=== PATIENT | female | born 1930 | race Caucasian/White ===

== ENCOUNTER 2017-11-23 06:14 | Outpatient (CLI) | payer MEDICARE ==
[~2017-11-23] VITALS: Ht 162.6 cm; Wt 69.9 kg
[~2017-11-23 06:14] MED LIST: CALC-17 PO; HYDR-3583 PO; LISI1TAB10 PO; MULT-608 PO; OMG1KC PO; PRAV80TA2 PO
[2017-11-23] MEDS ORDERED: MAGN100T5 PO (13:40)
[2017-11-23] MEDS ORDERED: IRON18TA PO (13:40)
[2017-11-23] MEDS ORDERED: METO5TAB75 PO (13:40)
[2017-11-23] MEDS ORDERED: LOVA10TA PO (13:40)
[2017-11-23] MEDS ORDERED: CALC-308 PO (13:40)
[2017-11-23] MEDS ORDERED: PANT40TA2 PO (13:40)
[2017-11-23] MEDS ORDERED: HYDR25TA4 PO (13:40)
[2017-11-23] MEDS ORDERED: IRBE1TAB43 PO (13:40)
[2017-11-23] MEDS ORDERED: METF500T5 PO (13:40)
[2017-11-23] MEDS ORDERED: CYAN1TAB26 PO (13:40)
[2017-11-24] MEDS ORDERED: ACHD5005 PO (12:09)
[2017-11-24] MEDS ORDERED: DOCU-143 PO (12:09)
== END 2017-11-23 14:05 ==
LOC: PREOP 06:14
PROVIDERS: ATTEND Surgery
DX: Z01.818 Encounter for other preprocedural examination (principal); K80.20 Calculus of gallbladder without cholecystitis without obstruction

== ENCOUNTER 2017-11-24 08:08 | Day surgery (SDC) | payer MEDICARE, OTHER ==
[2017-11-24] VITALS (7 sets, daily range): BP systolic 120–175; BP diastolic 53–93
[~2017-11-24] VITALS: Ht 162.6 cm; Wt 69.9 kg
[~2017-11-24 08:08] MED LIST changes: +CALC-308 PO; +CYAN1TAB26 PO; +HYDR25TA4 PO; +IRBE1TAB43 PO; +IRON18TA PO; +LOVA10TA PO; +MAGN100T5 PO; +METF500T5 PO; +METO5TAB75 PO; +PANT40TA2 PO
--- OUTSIDE RECORDS SUMMARY | 2017-11-24 08:12 | XMS REPORT | Continuity of Care Document ---
Author Author [facility] Organization [facility] Address Unknown Phone Unavailable Allergies Active Description Code Type Severity Reaction Onset Reported/Identified Relationship to Patient Clinical Status Yes NORVASC MODERATE OTHER Yes amlodipine [id number] Drug Allergy Unknown SWELLING 11/23/2017 Medications Medication Packaging Start Date Stop Date Route Dosage Sig FUROSEMIDE VIAL INJ 20 MG (LASIX VIAL) MG 01/26/2017 01/26/2017 ONCE&2330 NORMAL SALINE 1000CC IV BAG INJ 0.9 % (NS 1000CC IV BAG) ml 02/03/2017 02/03/2017 ONCE&2155 HYDROCODONE/APAP 7.5/325 TAB (CHANDNI-TAB 7.5/325) TAB 02/04/2017 02/14/2017 PRN Q4H NORMAL SALINE 1000CC IV BAG INJ 0.9 % (NS 1000CC IV BAG) ml 02/04/2017 02/19/2017 CONTINUOUSEVERY 0 Hour MAGNESIUM OXIDE TAB 400 MG (MAG-OX) MG 02/04/2017 02/10/2017 BID&0800,1999 METFORMIN TAB 500 MG (GLUCOPHAGE) Dose(s) 02/04/2017 02/10/2017 BID&0800,2000 HYDRALAZINE TAB 25 MG (APRESOLINE) Dose(s) 02/04/2017 02/10/2017 BID&0800,1999 IRBESARTAN TAB 150 MG (AVAPRO) MG 02/04/2017 02/10/2017 Daily&0900 PANTOPAZOLE VIAL INJ 40 MG (PROTONIX IV) MG 02/04/2017 02/14/2017 BID&0800,2000 FUROSEMIDE VIAL INJ 20 MG (LASIX VIAL) MG 02/04/2017 02/04/2017 ONCE&1100 LACTATED RINGERS 1000CC IV BAG INJ ml 02/05/2017 02/05/2017 ONCE&0720 SUCRALFATE TAB 1 GM (CARAFATE) GM 02/05/2017 02/05/2017 ONCE&0920 SUCRALFATE TAB 1 GM (CARAFATE) GM 02/05/2017 02/12/2017 ACHS&0630,1130,1630,2100 HYDRALAZINE TAB 25 MG (APRESOLINE) Dose(s) 02/06/2017 02/06/2017 ONCE&0800 IRBESARTAN TAB 150 MG (AVAPRO) Dose(s) 02/06/2017 02/12/2017 Daily&0900 HYDROCORTISONE CREAM CRM 1 % (HYTONE CREAM) chen 02/06/2017 02/16/2017 PRN BID HYDRALAZINE TAB 25 MG (APRESOLINE) Dose(s) 02/06/2017 02/13/2017 TID&0800,1400,2000 CEFTRIAXONE PREMIX IV BAG IV 1 GM/50CC (ROCEPHIN PREMIX IV BAG) GM 02/06/2017 02/07/2017 BID&0800 LORATADINE TAB 10 MG (CLARITIN) MG 02/07/2017 02/13/2017 Daily&0900 HYDROCHLOROTHIAZIDE CAP 12.5 MG (HYDRODIURIL) MG 02/07/2017 02/13/2017 Daily&0900 IRBESARTAN TAB 150 MG (AVAPRO) Dose(s) 02/11/2017 02/17/2017 BID&0800,2000 FUROSEMIDE VIAL INJ 20 MG (LASIX VIAL) MG 02/11/2017 02/11/2017 ONCE&1816 NORMAL SALINE 1000CC IV BAG INJ 0.9 % (NS 1000CC IV BAG) ml 02/11/2017 02/26/2017 CONTINUOUSEVERY 0 Hour GOLYTELY LIQ (GOLYTELY) MLS 02/1102/11/2017 ONCE&1835 MAGNESIUM OXIDE TAB 400 MG (MAG-OX) Dose(s) 02/11/2017 02/18/2017 BID&0800,2000 METFORMIN TAB 500 MG (GLUCOPHAGE) MG 02/11/2017 02/18/2017 BID&0800,2000 PANTOPAZOLE VIAL INJ 40 MG (PROTONIX IV) MG 02/11/2017 02/21/2017 BID&0800,2000 GOLYTELY LIQ (GOLYTELY) MLS 02/1202/12/2017 ONCE&1200 CALMOSEPTINE OINT TUBE (RISAMINE OINT) chen 02/12/2017 02/19/2017 PRN QID CITRATE OF MAGNESIA LIQ bottle 06/201602/13/2017 ONCE&0700 MIDAZOLAM 2CC VIAL INJ 1 MG/CC (VERSED 2CC VIAL) MG 02/13/2017 02/13/2017 ONCE&1331 MIDAZOLAM 2CC VIAL INJ 1 MG/CC (VERSED 2CC VIAL) MG 02/13/2017 02/13/2017 ONCE&1346 ONDANSETRON VIAL INJ 4 MG/2CC (ZOFRAN 2CC VIAL) MG 02/13/2017 02/13/2017 PRN ONCE FENTANYL INJ 100 MCG/2CC VIAL MCG 02/13/2017 02/16/2017 Q2H&0200,0400,0600,0800,1000,1200,1400,1600,1800,2000,2200,2359 SUCRALFATE TAB 1 GM (CARAFATE) GM 02/14/2017 02/21/2017 QID&0800,1200,1700,2200 PANTOPRAZOLE TAB 40 MG (PROTONIX) MG 02/14/2017 02/21/2017 BID&0800,2000 HYDRALAZINE TAB 25 MG (APRESOLINE) Dose(s) 02/15/2017 02/21/2017 TID&0600,1400,2200 PANTOPRAZOLE TAB 40 MG (PROTONIX) Dose(s) 02/15/2017 03/16/2017 BID&0800,2000 SUCRALFATE TAB 1 GM (CARAFATE) Dose(s) 02/15/2017 03/17/2017 QID&0800,1200,1700,2200 LORATADINE TAB 10 MG (CLARITIN) Dose(s) 02/16/2017 03/17/2017 Daily&0900 NORMAL SALINE 500CC IV BAG INJ 0.9 % (NS 500CC IV BAG) ml 11/20/2017 11/20/2017 ONCE&1456 ONDANSETRON VIAL INJ 4 MG/2CC (ZOFRAN 2CC VIAL) MG 11/20/2017 11/20/2017 ONCE&1628 Problems Date Dx Coded Attending Type Code Diagnosis Diagnosed By 01/23/2017 Joshua Roberson 250.00 DIABETES MELLITUS WITHOUT MENTION OF COMPLICATION, TYPE II OR UNSPECIFIED TYPE, NOT STATED UNCONTROLLED 01/23/2017 Joshua Roberson 272.4 OTHER AND UNSPECIFIED HYPERLIPIDEMIA 01/23/2017 Joshua Roberson 285 01/23/2017 Joshua Roberson 401.9 UNSPECIFIED ESSENTIAL HYPERTENSION 01/23/2017 Joshua Roberson 785.1 01/23/2017 Joshua Roberson 786.05 01/23/2017 Joshua Roberson 787.7 01/23/2017 Joshua Roberson 791.7 OTHER CELLS AND CASTS IN URINE 01/23/2017 Joshua Roberson D64.9 ANEMIA, UNSPECIFIED 01/23/2017 Joshua Roberson E11.9 TYPE 2 DIABETES MELLITUS WITHOUT COMPLICATIONS 01/23/2017 Joshua Roberson E78.5 HYPERLIPIDEMIA, UNSPECIFIED 01/23/2017 Joshua Roberson I10 ESSENTIAL (PRIMARY) HYPERTENSION 01/23/2017 Joshua Roberson R00.2 PALPITATIONS 01/23/2017 Joshua Roberson R06.02 SHORTNESS OF BREATH 01/23/2017 Joshua Roberson R19.5 OTHER FECAL ABNORMALITIES 01/23/2017 Joshua Roberson R82.99 OTHER ABNORMAL FINDINGS IN URINE 01/26/2017 Sara Mac Z98.89 OTHER SPECIFIED POSTPROCEDURAL STATES 01/26/2017 Sara Mac 998.31 DISRUPTION OF INTERNAL OPERATION (SURGICAL) WOUND 01/26/2017 Sara Mac V26.51 TUBAL LIGATION STATUS 01/26/2017 Sara Mac Z98.51 TUBAL LIGATION STATUS 01/26/2017 Sara Mac Z98.89 OTHER SPECIFIED POSTPROCEDURAL STATES 01/26/2017 Sara Mac 285 OTHER AND UNSPECIFIED ANEMIAS 01/26/2017 Sara Mac 998.31 DISRUPTION OF INTERNAL OPERATION (SURGICAL) WOUND 01/26/2017 Sara Mac D64.9 ANEMIA, UNSPECIFIED 01/26/2017 Sara Mac W V26.51 TUBAL LIGATION STATUS 01/26/2017 Sara Mac W Z98.51 TUBAL LIGATION STATUS 01/26/2017 Sara Mac Z98.89 OTHER SPECIFIED POSTPROCEDURAL STATES 01/27/2017 Sara Mac 285 OTHER AND UNSPECIFIED ANEMIAS 01/27/2017 Sara Mac 998.31 DISRUPTION OF INTERNAL OPERATION (SURGICAL) WOUND 01/27/2017 Danilo, Sara A D64.9 ANEMIA, UNSPECIFIED 01/27/2017 Danilo, Sara W V26.51 TUBAL LIGATION STATUS 01/27/2017 Danilo, Sara W Z98.51 TUBAL LIGATION STATUS 01/27/2017 Danilo, Sara W Z98.89 OTHER SPECIFIED POSTPROCEDURAL STATES 01/30/2017 Danilo, Sara W 285 OTHER AND UNSPECIFIED ANEMIAS 01/30/2017 Danilo, Sara W D64.9 ANEMIA, UNSPECIFIED 01/30/2017 Danilo, Sara W 285 OTHER AND UNSPECIFIED ANEMIAS 01/30/2017 Danilo, Sara W D64.9 ANEMIA, UNSPECIFIED 02/07/2017 Danilo, Sara W 041.3 KLEBSIELLA PNEUMONIAE INFECTION IN CONDITIONS CLASSIFIED ELSEWHERE AND OF UNSPECIFIED SITE 02/07/2017 Danilo, Sara W 250.00 02/07/2017 Danilo, Sara W 272.4 02/07/2017 Danilo, Sara W 285.1 02/07/2017 Danilo, Sara W 401.0 02/07/2017 Danilo, Sara W 530.81 02/07/2017 Danilo, Sara A 531.0 02/07/2017 Danilo, Sara W 535.10 02/07/2017 Danilo, Sara W 599.0 URINARY TRACT INFECTION, SITE NOT SPECIFIED 02/07/2017 Danilo, Sara W 780.79 OTHER MALAISE AND FATIGUE 02/07/2017 [facility], Sara W 787.91 DIARRHEA 02/07/2017 Danilo, Sara W B96.1 KLEBSIELLA PNEUMONIAE THE CAUSE OF DISEASES CLASSD ELSWHR 02/07/2017 Danilo, Sara W D62 02/07/2017 Danilo, Sraa W E11.9 TYPE 2 DIABETES MELLITUS WITHOUT COMPLICATIONS 02/07/2017 Danilo, Sara W E78.5 HYPERLIPIDEMIA, UNSPECIFIED 02/07/2017 Danilo, Sara W I10 ESSENTIAL (PRIMARY) HYPERTENSION 02/07/2017 Danilo, Sara W K21.9 GASTRO-ESOPHAGEAL REFLUX DISEASE WITHOUT ESOPHAGITIS 02/07/2017 Danilo, Sara A K25.0 02/07/2017 Danilo, Sara W K29.30 CHRONIC SUPERFICIAL GASTRITIS WITHOUT BLEEDING 02/07/2017 Danilo, Sara W N39.0 URINARY TRACT INFECTION, SITE NOT SPECIFIED 02/07/2017 Danilo Sara W R19.7 DIARRHEA, UNSPECIFIED 02/07/2017 Glo Maca W R53.83 OTHER FATIGUE 02/15/2017 Sara Mac W 285.1 ACUTE POSTHEMORRHAGIC ANEMIA 02/15/2017 Glo Maca W 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 02/15/2017 Glo Maca A 531.0 02/15/2017 Danilo Sara W 552.3 02/15/2017 Danilo Sara W 562.12 DIVERTICULOSIS OF COLON WITH HEMORRHAGE 02/15/2017 Danilo, Sara W 578.9 HEMORRHAGE OF GASTROINTESTINAL TRACT, UNSPECIFIED 02/15/2017 Sara Mac W D62 ACUTE POSTHEMORRHAGIC ANEMIA 02/15/2017 Sara Mac W I10 ESSENTIAL (PRIMARY) HYPERTENSION 02/15/2017 Sara Mac A K25.0 ACUTE GASTRIC ULCER WITH HEMORRHAGE 02/15/2017 Sara Mac K44.9 DIAPHRAGMATIC HERNIA WITHOUT OBSTRUCTION OR GANGRENE 02/15/2017 Sara Mac W K57.30 DVRTCLOS OF LG INT W/O PERFORATION OR ABSCESS W/O BLEEDING 02/15/2017 Glo Maca W K92.2 GASTROINTESTINAL HEMORRHAGE, UNSPECIFIED 02/20/2017 Danilo Sara W 285 OTHER AND UNSPECIFIED ANEMIAS 02/20/2017 Glo Maca W D64.9 ANEMIA, UNSPECIFIED 02/20/2017 Danilo Sara W 285 OTHER AND UNSPECIFIED ANEMIAS 02/20/2017 Glo Maca W D64.9 ANEMIA, UNSPECIFIED 03/06/2017 Glo Maca W V67.59 OTHER FOLLOW-UP EXAMINATION 03/06/2017 Sara Mac Z09 ENCOUNTER FOR FOLLOW-UP EXAMINATION AFTER COMPLETED TREATMENT FOR CONDITIONS OTHER THAN MALIGNANT NEOPLASM 03/06/2017 Sara Mac V67.59 OTHER FOLLOW-UP EXAMINATION 03/06/2017 Sara Mac W Z09 ENCOUNTER FOR FOLLOW-UP EXAMINATION AFTER COMPLETED TREATMENT FOR CONDITIONS OTHER THAN MALIGNANT NEOPLASM 03/24/2017 Sara Mac W 531.0 ACUTE GASTRIC ULCER WITH HEMORRHAGE 03/24/2017 Danilo, Sara W K25.0 ACUTE GASTRIC ULCER WITH HEMORRHAGE 03/24/2017 Sara Mac W V67.59 OTHER FOLLOW-UP EXAMINATION 03/24/2017 Sara Mac W Z09 ENCOUNTER FOR FOLLOW-UP EXAMINATION AFTER COMPLETED TREATMENT FOR CONDITIONS OTHER THAN MALIGNANT NEOPLASM 03/24/2017 DaniloGloa W 531.0 ACUTE GASTRIC ULCER WITH HEMORRHAGE 03/24/2017 DaniloGloa W K25.0 ACUTE GASTRIC ULCER WITH HEMORRHAGE 03/24/2017 Danilo Sara W V67.59 OTHER FOLLOW-UP EXAMINATION 03/24/2017 DaniloGloa W Z09 ENCOUNTER FOR FOLLOW-UP EXAMINATION AFTER COMPLETED TREATMENT FOR CONDITIONS OTHER THAN MALIGNANT NEOPLASM 08/23/2017 Danilo, Sara W 250.00 DIABETES MELLITUS WITHOUT MENTION OF COMPLICATION, TYPE II OR UNSPECIFIED TYPE, NOT STATED UNCONTROLLED 08/23/2017 Sara Mac W 796.4 OTHER ABNORMAL CLINICAL FINDINGS 08/23/2017 Sara Mac W E11.9 TYPE 2 DIABETES MELLITUS WITHOUT COMPLICATIONS 08/23/2017 Sara Mac W 250.00 DIABETES MELLITUS WITHOUT MENTION OF COMPLICATION, TYPE II OR UNSPECIFIED TYPE, NOT STATED UNCONTROLLED 08/23/2017 Sara Mac W 796.4 OTHER ABNORMAL CLINICAL FINDINGS 08/23/2017 Glo Maca W E11.9 TYPE 2 DIABETES MELLITUS WITHOUT COMPLICATIONS 11/02/2017 Sara Mac W 719.45 PAIN IN JOINT INVOLVING PELVIC REGION AND THIGH 11/02/2017 Glo Maca W M25.559 PAIN IN UNSPECIFIED HIP 11/02/2017 Glo Maca W 719.45 PAIN IN JOINT INVOLVING PELVIC REGION AND THIGH 11/02/2017 Glo Maca W M25.559 PAIN IN UNSPECIFIED HIP 11/06/2017 Glo Maca W 719.45 PAIN IN JOINT INVOLVING PELVIC REGION AND THIGH 11/06/2017 Danilo, Sara W M25.559 PAIN IN UNSPECIFIED HIP 11/06/2017 Danilo, Sara W 719.45 PAIN IN JOINT INVOLVING PELVIC REGION AND THIGH 11/06/2017 Sara Mac W 790.6 OTHER ABNORMAL BLOOD CHEMISTRY 11/06/2017 Sara Mac W M25.559 PAIN IN UNSPECIFIED HIP 11/06/2017 Sara Mac W R73.9 HYPERGLYCEMIA, UNSPECIFIED 11/06/2017 Glo Maca W 719.45 PAIN IN JOINT INVOLVING PELVIC REGION AND THIGH 11/06/2017 DaniloGloa W 790.6 OTHER ABNORMAL BLOOD CHEMISTRY 11/06/2017 DaniloGlosonido Farris M25.559 PAIN IN UNSPECIFIED HIP 11/06/2017 DaniloGlosonido Farris R73.9 HYPERGLYCEMIA, UNSPECIFIED 11/20/2017 Joshua Roberson 784.0 HEADACHE 11/20/2017 Joshua Roberson 923.00 CONTUSION OF SHOULDER REGION 11/20/2017 Joshua Roberson 924.01 CONTUSION OF HIP 11/20/2017 Joshua Roberson R51 HEADACHE 11/20/2017 Joshua Roberson S40.011A CONTUSION OF RIGHT SHOULDER, INITIAL ENCOUNTER 11/20/2017 Joshua Roberson S70.01XA CONTUSION OF RIGHT HIP, INITIAL ENCOUNTER 11/23/2017 SARA MAC MD Ot 789.00 ABDOMINAL PAIN, UNSPECIFIED SITE 11/23/2017 SARA MAC MD Ot 789.00 ABDOMINAL PAIN, UNSPECIFIED SITE 11/23/2017 SARA MAC MD Ot 789.00 ABDOMINAL PAIN, UNSPECIFIED SITE Procedures There is no data. Results Test Result Range EKG - 01/19/17 07:39 EKG Complete BNP - 01/23/17 13:54 BNP 217.20 pg/ml 0.00-100.00 Urinalysis - 01/23/17 13:54 Icotest N/A Negative Urine Volume Urine Volume Sufficient (10mL) Urine-Appearance Clear Clear Urine-Bacteria Trace Urine-Bilirubin Negative Negative Urine-Blood Negative Negative Urine-Color Yellow Colorless-Lt. Yellow Urine-Epithelial Cells 0-5/HPF Urine-Glucose Negative Negative Urine-Ketones Negative Negative Urine-Leukocytes 1+ Negative Urine-Nitrite Negative Negative Urine-Other Culture to follow Urine-pH 5.5 5-8.5 Urine-Protein 1+ Negative Urine-Specific [place] 1.010 1.000-1.030 Urine-WBC 10-20/HPF Urobilinogen 0.2 E.U./dL 0.2-1.0 Urine Culture - 01/23/17 13:54 PRELIM CULTURE RESULTS No Growth 24 hours FINAL CULTURE RESULTS <10,000 Gram Positive Mixed [id number] Skin Contaminant [id number] Further Workup done MEDIA PLATED Setup at 17:21 on 01/23/2017 CULTURE SOURCE void EKG - 01/23/17 14:06 EKG Complete IFOBT Occult Blood - 01/23/17 15:36 IFOBT Occult Blood POSITIVE Negative Holter Monitor 48 hour - 01/23/17 15:56 Holter Monitor 48 Hour Complete Troponin I - 01/23/17 17:00 Troponin <0.020 ng/mL 0.0-0.4 CBC with Auto Diff - 01/26/17 15:13 Baso% 0.40 % 0.00-2.50 Eos 0.2 K/uL 0.0-0.7 Eos% 2.1 % 0.0-7.0 Hct 27.7 % 36.0-46.0 Hgb 8.5 Result Verified by Repeat Analysis g/dL 13.0- 15.0 Lym 2.57 K/uL 0.60-3.40 Lym% 33.6 % 10.0-50.0 MCH 24.4 pg 27.0-31.0 MCHC 30.7 g/dL 32.0-36.0 MCV 79.6 fL 80.0-97.0 [place]% 6.5 % 0.0-12.0 MPV 9.6 fL 7.4-10.0 Berenice% 57.4 % 37.0-80.0 Plt 272 K/uL 150-400 RBC 3.48 M/uL 3.60-5.00 RDW 15.4 % 11.6-14.8 WBC 7.66 K/uL 5.00-10.00 [place] 4.40 K/uL 2.00-6.90 [place] 0.5 K/uL 0.0-0.9 Baso 0.0 K/uL 0.0-0.2 Magnesium - 01/26/17 15:13 Mg++ 2.4 mg/dL 1.6-2.6 TYPE/SCREEN - 01/26/17 16:42 ABO/RH B NEGATIVE ANTIBODY SCREEN NEGATIVE Leukoreduced Packed RBC Unit Checkout - 01/26/17 19:14 LRPRBC Checkout Checked Out. Leukoreduced Packed RBC Unit Checkout - 01/26/17 23:57 LRPRBC Checkout Checked Out. HH - 01/27/17 04:42 Hct 31.0 % 36.0-46.0 Hgb 10.0 g/dL 13.0-15.0 [facility] - 01/30/17 10:05 Anion Gap 12 6-14 BUN 15 mg/dL 5-25 Calcium 9.6 mg/dL 8.3-10.4 Chloride 105 mmol/L 95-114 CO2 26 mEq/L 22-33 Creat 0.85 mg/dL 0.50-1.50 eGFR 64 mL/min/1.73m2 >59 Glucose 135 mg/dL 70-110 Osmo 288 280-295 Potassium 4.5 mmol/L 3.5-5.3 Sodium 138 mmol/L 134-148 - 01/30/17 10:05 Hct 34.8 % 36.0-46.0 Hgb 10.9 g/dL 13.0-15.0 EKG - 02/03/17 22:35 EKG Complete Urinalysis - 02/03/17 22:35 Icotest N/A Negative Urine Volume Urine Volume Sufficient (10mL) Urine Yeast No Yeast present Urine-Appearance Slightly Cloudy Clear Urine-Bacteria 2+ Urine-Bilirubin Negative Negative Urine-Blood 2+ Negative Urine-Color Yellow Colorless-Lt. Yellow Urine-Epithelial Cells 5-10/HPF Urine-Glucose Negative Negative Urine-Ketones Negative Negative Urine-Leukocytes 2+ Negative Urine-Mucus 1+ Urine-Nitrite Negative Negative Urine-Other Urine Saved if Culture Needed (48hrs from time of collection) Urine-pH 6.0 5-8.5 Urine-Protein Negative Negative Urine-RBC 2-5/HPF Urine-Specific [place] 1.020 1.000-1.030 Urine-WBC 20-40/HPF Urobilinogen 0.2 0.2-1.0 Urine Culture - 02/04/17 00:50 PRELIM CULTURE RESULTS 50,000-100,000 Gram Negative RITA / ID to Follow MEDIA PLATED Setup at 05:30 on 02/04/2017 CULTURE SOURCE [id number]\ Sensi - 02/04/17 00:50 FINAL CULTURE RESULTS Klebsiella pneumoniae (Isolate 1) Ampicillin/Sulbactam <=8/4 Ampicillin >16 Amoxicillin/K Clavulanate <=8/4 Ceftriaxone <=8 Ciprofloxacin <=1 Nitrofurantoin <=32 Gentamicin <=4 Levofloxacin <=2 Trimethoprim/ Sulfamethoxazole <=2/38 Tetracycline <=4 Amikacin <=16 Aztreonam <=8 Ceftazidime <=1 Ceftazidime/K Clavulanate <=0.25 Cephalothin <=8 Cefotaxime <=2 Cefotaxime/K Clavulanate <=0.5 Cefoxitin <=8 Cefazolin <=8 Cefepime <=8 Cefuroxime <=4 Ertapenem <=1 Imipenem <=4 Meropenem <=4 Piperacillin/Tazobactam <=16 Piperacillin <=16 Tigecycline <=2 Tobramycin <=4 Sensi - 02/04/17 00:50 Ampicillin/Sulbactam <=8/4 Ampicillin <=8 Amoxicillin/K Clavulanate <=8/4 Ceftriaxone <=8 Ciprofloxacin >2 Nitrofurantoin <=32 Gentamicin <=4 Levofloxacin >4 Trimethoprim/ Sulfamethoxazole <=2/38 Tetracycline >8 Amikacin <=16 Aztreonam <=8 Ceftazidime <=1 Ceftazidime/K Clavulanate <=0.25 Cephalothin 16 Cefotaxime <=2 Cefotaxime/K Clavulanate <=0.5 Cefoxitin <=8 Cefazolin <=8 Cefepime <=8 Cefuroxime 8 Ertapenem <=1 Imipenem <=4 Meropenem <=4 Piperacillin/Tazobactam <=16 Piperacillin <=16 Tigecycline <=2 Tobramycin <=4 FINAL CULTURE RESULTS Citrobacter farmeri (Isolate 2) XM (2) [facility] - 02/04/17 06:28 CROSSMATCH COMPATIBLE X 2 Hct 22.9 % 36.0-46.0 Hgb 7.3 g/dL 13.0-15.0 Leukoreduced Packed RBC Unit Checkout - 02/04/17 08:00 LRPRBC Checkout Checked Out. Leukoreduced Packed RBC Unit Checkout - 02/04/17 10:55 LRPRBC Checkout Checked Out. - 02/04/17 14:53 Hct 29.7 % 36.0-46.0 Hgb 9.5 g/dL 13.0-15.0 BMP - 02/05/17 06:40 Anion Gap 13 6-14 BUN 15 mg/dL 5-25 Calcium 8.9 mg/dL 8.3-10.4 Chloride 108 mmol/L 95-114 CO2 23 mEq/L 22-33 Creat 0.75 mg/dL 0.50-1.50 eGFR 73 mL/min/1.73m2 >59 Glucose 128 mg/dL 70-110 Osmo 291 280-295 Potassium 4.4 mmol/L 3.5-5.3 Sodium 140 mmol/L 134-148 CBC with Auto Diff - 02/05/17 18:58 Baso% 0.40 % 0.00-2.50 Eos 0.2 K/uL 0.0-0.7 Eos% 3.1 % 0.0-7.0 Hct 29.6 % 36.0-46.0 Hgb 9.5 g/dL 13.0-15.0 Lym 1.96 K/uL 0.60-3.40 Lym% 27.8 % 10.0-50.0 MCH 26.0 pg 27.0-31.0 MCHC 32.1 g/dL 32.0-36.0 MCV 81.1 fL 80.0-97.0 [place]% 10.1 % 0.0-12.0 MPV 9.4 fL 7.4-10.0 Be[place]ice% 58.6 % 37.0-80.0 Plt 176 K/uL 150-400 RBC 3.65 M/uL 3.60-5.00 RDW 16.0 % 11.6-14.8 WBC 7.04 K/uL 5.00-10.00 [place] 4.12 K/uL 2.00-6.90 [place] 0.7 K/uL 0.0-0.9 Baso 0.0 K/uL 0.0-0.2 CBC with Auto Diff - 02/06/17 07:22 Baso% 0.40 % 0.00-2.50 Eos 0.2 K/uL 0.0-0.7 Eos% 3.3 % 0.0-7.0 Hct 31.9 % 36.0-46.0 Hgb 10.1 g/dL 13.0-15.0 Lym 1.84 K/uL 0.60-3.40 Lym% 35.9 % 10.0-50.0 MCH 25.9 pg 27.0-31.0 MCHC 31.7 g/dL 32.0-36.0 MCV 81.8 fL 80.0-97.0 [place]% 8.2 % 0.0-12.0 MPV 9.5 fL 7.4-10.0 [place]% 52.2 % 37.0-80.0 Plt 203 K/uL 150-400 RBC 3.90 M/uL 3.60-5.00 RDW 15.8 % 11.6-14.8 WBC 5.12 K/uL 5.00-10.00 [place] 2.67 K/uL 2.00-6.90 [place] 0.4 K/uL 0.0-0.9 Baso 0.0 K/uL 0.0-0.2 CBC with Auto Diff - 02/06/17 19:05 Baso% 0.30 % 0.00-2.50 Eos 0.2 K/uL 0.0-0.7 Eos% 3.2 % 0.0-7.0 Hct 30.7 % 36.0-46.0 Hgb 9.9 Result Verified by Repeat Analysis g/dL 13.0- 15.0 Lym 1.92 K/uL 0.60-3.40 Lym% 27.9 % 10.0-50.0 MCH 26.2 pg 27.0-31.0 MCHC 32.2 g/dL 32.0-36.0 MCV 81.2 fL 80.0-97.0 [place]% 6.8 % 0.0-12.0 MPV 9.6 fL 7.4-10.0 [place]% 61.8 % 37.0-80.0 Plt 213 K/uL 150-400 RBC 3.78 M/uL 3.60-5.00 RDW 16.1 % 11.6-14.8 WBC 6.89 K/uL 5.00-10.00 [place] 4.26 K/uL 2.00-6.90 [place] 0.5 K/uL 0.0-0.9 Baso 0.0 K/uL 0.0-0.2 iStat BNP - 02/07/17 06:56 i-STAT BNP 233.00 pg/mL 0.00-50.00 IFOBT Occult Blood - 02/07/17 11:44 IFOBT Occult Blood POSITIVE Negative C.difficile, DNA Amplification - 02/07/17 11:45 C.difficile, DNA Amplification NEGATIVE: No DNA evidence of toxogenic C. difficile detected. Negative - 02/07/17 14:25 Hct 30.7 % 36.0-46.0 Hgb 9.8 g/dL 13.0-15.0 CBC with Auto Diff - 02/10/17 07:34 Baso% 0.40 % 0.00-2.50 Eos 0.2 K/uL 0.0-0.7 Eos% 2.6 % 0.0-7.0 Hct 29.4 % 36.0-46.0 Hgb 9.4 g/dL 13.0-15.0 Lym 3.47 K/uL 0.60-3.40 Lym% 43.3 % 10.0-50.0 MCH 26.2 pg 27.0-31.0 MCHC 32.0 g/dL 32.0-36.0 MCV 81.9 fL 80.0-97.0 [place]% 7.4 % 0.0-12.0 MPV 8.8 fL 7.4-10.0 [place]renice% 46.3 % 37.0-80.0 Plt 294 K/uL 150-400 RBC 3.59 M/uL 3.60-5.00 RDW 16.2 % 11.6-14.8 WBC 8.01 K/uL 5.00-10.00 [place] 3.71 K/uL 2.00-6.90 [place] 0.6 K/uL 0.0-0.9 Baso 0.0 K/uL 0.0-0.2 IFOBT Occult Blood - 02/11/17 17:35 IFOBT Occult Blood POSITIVE Negative Comprehensive Metabolic Panel - 02/11/17 17:38 Albumin 3.6 g/dL 3.6-5.1 ALP 85 U/L 35-130 ALT 16 U/L 6-45 Anion Gap 16 6-14 AST 12 U/L 2-40 BUN 20 mg/dL 5-25 Calcium 9.6 mg/dL 8.3-10.4 Chloride 100 mmol/L 95-114 CO2 18 mEq/L 22-33 Creat 0.92 mg/dL 0.50-1.50 eGFR 58 mL/min/1.73m2 >59 Globulin 2.2 g/dL 2.3-3.5 Glucose 206 mg/dL 70-110 Osmo 277 280-295 Potassium 4.0 mmol/L 3.5-5.3 Sodium 130 mmol/L 134-148 TBil 0.5 mg/dL 0.2-1.2 TP 5.8 g/dL 6.0-8.3 TYPE/SCREEN - 02/11/17 17:38 ABO/RH B NEGATIVE ANTIBODY SCREEN NEGATIVE Leukoreduced Packed RBC Unit Checkout - 02/11/17 19:30 LRPRBC Checkout Checked Out. Leukoreduced Packed RBC Unit Checkout - 02/11/17 23:10 LRPRBC Checkout Checked Out. - 02/12/17 04:25 Hct 28.0 % 36.0-46.0 Hgb 9.3 Result Verified by Repeat Analysis g/dL 13.0- 15.0 CBC with Auto Diff - 02/12/17 06:06 Baso% 0.50 % 0.00-2.50 Eos 0.1 K/uL 0.0-0.7 Eos% 2.3 % 0.0-7.0 Hct 29.5 % 36.0-46.0 Hgb 9.7 g/dL 13.0-15.0 Lym 2.62 K/uL 0.60-3.40 Lym% 43.9 % 10.0-50.0 MCH 26.5 pg 27.0-31.0 MCHC 32.9 g/dL 32.0-36.0 MCV 80.6 fL 80.0-97.0 [place]% 8.5 % 0.0-12.0 MPV 9.4 fL 7.4-10.0 [place]% 44.8 % 37.0-80.0 Plt 249 K/uL 150-400 RBC 3.66 M/uL 3.60-5.00 RDW 16.1 % 11.6-14.8 WBC 5.97 K/uL 5.00-10.00 [place] 2.67 K/uL 2.00-6.90 [place] 0.5 K/uL 0.0-0.9 Baso 0.0 K/uL 0.0-0.2 [facility] - 02/12/17 06:06 Anion Gap 14 6-14 BUN 16 mg/dL 5-25 Calcium 9.4 mg/dL 8.3-10.4 Chloride 101 mmol/L 95-114 CO2 24 mEq/L 22-33 Creat 0.79 mg/dL 0.50-1.50 eGFR 69 mL/min/1.73m2 >59 Glucose 107 mg/dL 70-110 Osmo 281 280-295 Potassium 4.2 mmol/L 3.5-5.3 Sodium 135 mmol/L 134-148 Urinalysis - 02/12/17 09:53 Icotest N/A Negative Urine Volume Urine Volume Sufficient (10mL) Urine Yeast No Yeast present Urine-Appearance Clear Clear Urine-Bacteria Trace Urine-Bilirubin Negative Negative Urine-Blood Negative Negative Urine-Color Yellow Colorless-Lt. Yellow Urine-Epithelial Cells 0-5/HPF Urine-Glucose Negative Negative Urine-Ketones Negative Negative Urine-Leukocytes Negative Negative Urine-Nitrite Negative Negative Urine-Other Urine Saved if Culture Needed (48hrs from time of collection) Urine-pH 7.0 5-8.5 Urine-Protein Negative Negative Urine-RBC Negative Urine-Specific [place] 1.015 1.000-1.030 Urine-WBC Rare/HPF Urobilinogen 0.2 E.U./dL 0.2-1.0 XM (2) [facility] - 02/12/17 16:44 CROSSMATCH COMPATIBLE X 2 Hct 33.4 % 36.0-46.0 Hgb 11.0 g/dL 13.0-15.0 BMP - 02/13/17 07:00 Anion Gap 14 6-14 BUN 15 mg/dL 5-25 Calcium 9.3 mg/dL 8.3-10.4 Chloride 106 mmol/L 95-114 CO2 23 mEq/L 22-33 Creat 0.80 mg/dL 0.50-1.50 eGFR 68 mL/min/1.73m2 >59 Glucose 102 mg/dL 70-110 Osm[place] 288 280-295 Potassium 3.8 mmol/L 3.5-5.3 Sodium 139 mmol/L 134-148 EKG - 02/13/17 13:27 EKG Complete BNP - 02/14/17 07:12 BNP 258.40 pg/ml 0.00-100.00 CBC with Auto Diff - 02/15/17 06:39 Baso% 0.80 % 0.00-2.50 Eos 0.2 K/uL 0.0-0.7 Eos% 3.9 % 0.0-7.0 Hct 30.2 % 36.0-46.0 Hgb 9.6 g/dL 13.0-15.0 Lym 1.85 K/uL 0.60-3.40 Lym% 29.8 % 10.0-50.0 MCH 26.4 pg 27.0-31.0 MCHC 31.8 g/dL 32.0-36.0 MCV 83.0 fL 80.0-97.0 [place]% 7.9 % 0.0-12.0 MPV 9.6 fL 7.4-10.0 [place]% 57.6 % 37.0-80.0 Plt 300 K/uL 150-400 RBC 3.64 M/uL 3.60-5.00 RDW 16.1 % 11.6-14.8 WBC 6.21 K/uL 5.00-10.00 [place] 3.58 K/uL 2.00-6.90 [place] 0.5 K/uL 0.0-0.9 Baso 0.1 K/uL 0.0-0.2 Hemoglobin - 02/20/17 07:25 Hgb 9.7 g/dL 13.0-15.0 HH - 03/06/17 09:37 Hct 32.3 % 36.0-46.0 Hgb 10.1 g/dL 13.0-15.0 - 03/24/17 07:39 Hct 32.1 % 36.0-46.0 Hgb 9.9 g/dL 13.0-15.0 Lab Card - 08/23/17 07:38 LabCard Specimen submitted to [facility] for Testing. CBC with Auto Diff - 11/02/17 11:47 Baso% 0.20 % 0.00-2.50 Eos 0.1 K/uL 0.0-0.7 Eos% 1.2 % 0.0-7.0 Hct 37.8 % 36.0-46.0 Hgb 13.2 g/dL 13.0-15.0 Lym 2.03 K/uL 0.60-3.40 Lym% 19.2 % 10.0-50.0 MCH 29.7 pg 27.0-31.0 MCHC 34.9 g/dL 32.0-36.0 MCV 84.9 fL 80.0-97.0 [place]% 6.1 % 0.0-12.0 MPV 9.6 fL 7.4-10.0 [place]% 73.3 % 37.0-80.0 Plt 248 K/uL 150-400 RBC 4.45 M/uL 3.60-5.00 RDW 14.4 % 11.6-14.8 WBC 10.60 K/uL 5.00-10.00 [place] 7.77 K/uL 2.00-6.90 [place] 0.7 K/uL 0.0-0.9 Baso 0.0 K/uL 0.0-0.2 Hemoglobin A1C - 11/06/17 06:36 BMP - 11/08/17 07:50 Anion Gap 17 6-14 BUN 13 mg/dL 5-25 Calcium 10.1 mg/dL 8.3-10.4 Chloride 102 mmol/L 95-114 CO2 25 mEq/L 22-33 Creat 0.95 mg/dL 0.50-1.50 eGFR 56 mL/min/1.73m2 >59 Glucose 152 mg/dL 70-110 Osm[place] 292 280-295 Potassium 4.4 mmol/L 3.5-5.3 Sodium 140 mmol/L 134-148 Comprehensive Metabolic Panel - 11/20/17 14:56 Albumin 3.7 g/dL 3.6-5.1 ALP 103 U/L 35-130 ALT 11 U/L 6-45 Anion Gap 18 6-14 AST 18 U/L 2-40 BUN 14 mg/dL 5-25 Calcium 10.0 mg/dL 8.3-10.4 Chloride 95 mmol/L 95-114 CO2 21 mEq/L 22-33 Creat 0.76 mg/dL 0.50-1.50 eGFR 72 mL/min/1.73m2 >59 Globulin 3.2 g/dL 2.3-3.5 Glucose 114 mg/dL 70-110 Osm[place] 270 280-295 Potassium 4.1 mmol/L 3.5-5.3 Sodium 130 mmol/L 134-148 TBil 1.0 mg/dL 0.2-1.2 TP 6.9 g/dL 6.0-8.3 Encounters ACCT No. Visit Date/Time Discharge Status Pt. Type Provider Facility Loc./Unit Complaint [id number] 11/23/2017 06:14:00 11/23/2017 14:05:00 DIS Outpatient ROSALES ZABALA DO [facility] PREOP CHOLELITHIASIS [id number] 09/17/2012 09:38:00 09/17/2012 23:59:59 CLS Outpatient SARA MAC MD Via [facility] RAD ABD PAIN [id number] 11/24/2017 10:00:00 PEN Preadmit ROSALES ZABALA DO Via [facility] CHOLELITHIASIS [id number] 11/20/2017 14:17:00 11/20/2017 17:15:00 [id number] 11/09/2017 08:55:00 11/09/2017 23:59:00 DIS Outpatient Sara Mac [id number] 11/08/2017 07:46:00 11/08/2017 23:59:00 DIS Outpatient Sara Mac [id number] 11/06/2017 06:32:00 11/06/2017 23:59:00 DIS Outpatient Sara Mac [id number] 11/02/2017 11:43:00 11/02/2017 23:59:00 DIS Outpatient Sara Mac [id number] 08/23/2017 07:22:00 08/23/2017 23:59:00 DIS Outpatient Sara Mac [id number] 03/24/2017 07:37:00 03/24/2017 23:59:00 DIS Outpatient Sara Mac [id number] 03/06/2017 09:29:00 03/06/2017 23:59:00 DIS Outpatient Sara Mac [id number] 02/20/2017 07:17:00 02/20/2017 23:59:00 DIS Outpatient Sara Mac [id number] 02/11/2017 17:11:00 02/15/2017 10:41:00 [id number] 02/10/2017 07:31:00 02/10/2017 23:59:00 DIS Outpatient Sara Mac [id number] 02/03/2017 21:55:00 02/07/2017 16:40:00 [facility] [id number] 01/30/2017 10:02:00 01/30/2017 23:59:00 DIS Outpatient Sara Mac [id number] 01/26/2017 16:30:00 01/27/2017 09:30:00 DIS Outpatient Sara Mac [id number] 01/26/2017 09:57:00 01/26/2017 23:59:00 DIS Outpatient Danilo Sara [id number] 01/26/2017 16:06:00 01/26/2017 16:06:00 CAN Outpatient Danilo Sara [id number] 01/23/2017 13:42:00 01/23/2017 18:10:00 DIS Outpatient [facility] [id number] 01/19/2017 07:01:00 01/19/2017 23:59:00 DIS Outpatient Danilo Sara [id number] 01/18/2017 14:12:00 01/18/2017 23:59:00 DIS Outpatient DaniloSara [id number] 08/12/2016 08:41:00 08/12/2016 23:59:00 DIS Outpatient Danilo Sara [id number] 01/26/2017 21:26:42 Document Registration
[2017-11-24] MEDS: LACTATED RINGERS 1,000 ML IV PRN ×2 (08:40→11:30)
[2017-11-24] MEDS ORDERED: ceFAZolin 2 GM IV Premixed 50 ML IV ONE (08:45)
--- NOTE | 2017-11-24 08:59 | Progress Note-Pre Operative ---
Pre-Operative Progress Note H&P Reviewed The H&P was reviewed, patient examined and no changes noted. Date Seen by Provider: Nov 24, 2017 Time Seen by Provider: 08:59 Date H&P Reviewed: Nov 24, 2017 Time H&P Reviewed: 08:59 Pre-Operative Diagnosis: symptomatic cholelithiasis, ruq abdominal pain ROSALES ZABALA DO Nov 24, 2017 08:59
[2017-11-24 09:35] LABS: BASOPHILS % (AUTO) 0 % (0-10); EOSINOPHILS # (AUTO) 0.1 10^3/uL (0.0-0.3); EOSINOPHILS % (AUTO) 2 % (0-10); HEMATOCRIT 35 % (35-52); HEMOGLOBIN 12.3 G/DL (11.5-16.0); LYMPHOCYTES # (AUTO) 1.7 X 10^3 (1.0-4.0); LYMPHOCYTES % (AUTO) 21 % (12-44); MEAN CORPUSCULAR HEMOGLOBIN 29 PG (25-34); MEAN CORPUSCULAR HGB CONC 35 G/DL (32-36); MEAN CORPUSCULAR VOLUME 84 FL (80-99); MEAN PLATELET VOLUME 9.1 FL (7.4-10.4); MONOCYTES # (AUTO) 0.5 X 10^3 (0.0-1.0); MONOCYTES % (AUTO) 6 % (0-12); NEUTROPHILS # (AUTO) 5.6 X 10^3 (1.8-7.8); NEUTROPHILS % (AUTO) 71 % (42-75); PLATELET COUNT 264 10^3/uL (130-400); RED BLOOD COUNT 4.21 10^6/uL (4.35-5.85); RED CELL DISTRIBUTION WIDTH 13.8 % (10.0-14.5); WHITE BLOOD COUNT 7.9 10^3/uL (4.3-11.0)
[2017-11-24] MEDS ORDERED: BUPIVACAINE 0.5% 30 ML (SENSORCAINE) VIAL ONE (09:52)
[2017-11-24] MEDS ORDERED: LIDOCAINE 1% INJ 20 ML 20 ML VIAL ONE (09:52)
[2017-11-24] MEDS ORDERED: proPOfol 200 MG/20 ML (DIPRIVAN) VIAL IV ONE ×2 (10:40→10:56)
[2017-11-24] MEDS ORDERED: ONDANSETRON 4 MG/2 ML (SDV) Z0FRAN ONE (10:40)
[2017-11-24] MEDS ORDERED: SEVOFLURANE (ULTANE) 15 ML INHAL SOLN ONE ×2 (10:40→10:56)
[2017-11-24] MEDS ORDERED: LIDOCAINE PF 2% 5 ML (XYLOCAINE) VIAL ONE ×2 (10:40→10:56)
[2017-11-24] MEDS ORDERED: MIDAZOLAM 2 MG/2 ML (VERSED) VIAL ONE (10:40)
[2017-11-24] MEDS ORDERED: fentaNYL INJECTION 100 MCG/2 ML AMP ONE (10:41)
[2017-11-24] MEDS ORDERED: DEXAMETHASONE 10 MG/ML (DECADRON) 1 ML VIAL ONE (10:56)
[2017-11-24] MEDS ORDERED: ATRACURIUM 50 MG/5 ML (TRACRIUM) IV ONE ×2 (10:56→10:58)
[2017-11-24] MEDS ORDERED: HURRICAINE EXT TUBE (BENZOCAINE) ONE (10:56)
[2017-11-24] MEDS ORDERED: LACTATED RINGERS 1,000 ML IV ONE (10:56)
[2017-11-24] MEDS ORDERED: ATROPINE 0.4 MG/ML 20 ML VIAL ONE (11:40)
--- NOTE | 2017-11-24 12:08 | Progress Note-Post Operative ---
Post-Operative Progess Note Surgeon (s)/Professional Engineer (s) Surgeon ROSALES ZABALA DO Professional Engineer: Dr. Staley Pre-Operative Diagnosis symptomatic cholelithiasis, ruq abdominal pain Post-Operative Diagnosis same Procedure & Operative Findings Date of Procedure 11/24/17 Procedure Performed/Findings lap tere c ioc Anesthesia Type gen Estimated Blood Loss Estimated blood loss (mL): min Specimens/Packing Specimens Removed gallbladder ROSALES ZABALA DO Nov 24, 2017 12:08
[2017-11-24] MEDS ORDERED: DOCU-143 PO (12:09)
[2017-11-24] MEDS ORDERED: ACHD5005 PO (12:09)
--- NOTE | 2017-11-24 12:10 | Discharge Inst-Simple/Standard ---
Discharge Inst-Standard Discharge Medications New, Converted or Re-Newed RX: RX on Chart Patient Instructions/Follow Up Plan of Care/Instructions/FU: 2 weeks Brijesh Activity as Tolerated: No Discharge Diet: Regular Diet Other Inst to Patient Follow up Appt: Make appointment for 2 weeks. Instructions: No lifting greater than 10 pounds. No strenuous activity. May shower in 24 hours, no tub bath or soaking. Use incentive spirometer at home as directed. No Smoking Skin/Wound Care: You have special glue over incision it will fall off on its own. Symptoms to Report: Appetite Changes, Extremity Discoloration, Numbness/Tingling, Swelling Increased , Bleeding Excessive, Eyesight Changes, Pain Increased, Urine Color Change, Constipation(Persistent), Fever over 101 degree F, Pain/Pressure in chest, Urinating Difficulty, Cough Up/Vomit Blood, Heart Beat Irreg/Pounding, Pain/ Pressure in jaw, Vaginal Bleeding Increase, Cramps in feet or legs, Lightheadedness, Pain/Pressure in shoulder, Diarrhea(Persistent), Memory Changes Suddenly, Questions/Concerns, Weight gain consecutive days, Dizziness/ Fainting, Nausea/Vomiting, Shortness of Breath, Weight gain over 2 pounds. If eyes or skin turn yellow notify physician. If questions or concerns contact your physician Or seek help at emergency department. ROSALES ZABALA DO Nov 24, 2017 12:10
[2017-11-24] MEDS ORDERED: HYDROcodone/APAP 5 MG/325 MG (LORTAB) TAB PO PRN (12:15)
[2017-11-24] MEDS ORDERED: GLYCOPYRROLATE 0.2 MG/ML (ROBINUL) 2 ML VIAL ONE (12:17)
[2017-11-24] MEDS ORDERED: ONDANSETRON 4 MG/2 ML (SDV) Z0FRAN IVP PRN (12:30)
[2017-11-24] MEDS ORDERED: MEPERIDINE (DEMEROL) INJ 50 MG/ML IVP PRN (12:30)
[2017-11-24] MEDS ORDERED: morphine INJ 10 MG/ML 1ML (SYR OR VIAL) ONE (12:47)
--- NOTE | 2017-11-24 12:48 | Diagnostic Imaging Report ---
Indication: Cholecystectomy. Fluoroscopy was provided in the OR during intraoperative cholangiogram. 16 seconds of fluoroscopy was utilized. The images demonstrate injection of the cystic duct remnant with opacification of intrahepatic and extrahepatic bile ducts. Contrast passes into the duodenum. No filling defects are seen to suggest retained stone. Impression: Fluoroscopy for intraoperative cholangiogram. Dictated by: Dictated on workstation # [id number]
[2017-11-24] MEDS: morphine INJ 10 MG/ML 1ML (SYR OR VIAL) IVP PRN ×2 (12:51→13:00)
[2017-11-24] MEDS ORDERED: NITROGLYCERIN 2% OINT 1 GM UNIT DOSE PACKET ONE (13:10)
[2017-11-24] MEDS ORDERED: NITROGLYCERIN 2% OINT 1 GM UNIT DOSE PACKET TOP ONE (13:15)
[2017-11-24] MEDS ORDERED: hydrALAZINE (APESOLINE) 20 MG/ML VIAL ONE (13:31)
[2017-11-24] MEDS ORDERED: hydrALAZINE (APESOLINE) 20 MG/ML VIAL IV NR (13:45)
--- NOTE | 2017-11-24 19:51 | OPERATIVE REPORT ---
DATE OF SERVICE: PREOPERATIVE DIAGNOSIS: Symptomatic cholelithiasis, right upper quadrant abdominal pain. POSTOPERATIVE DIAGNOSIS: Symptomatic cholelithiasis, right upper quadrant abdominal pain. PROCEDURE: Laparoscopic cholecystectomy with intraoperative cholangiogram. SURGEON: Rosales Coley DO GLAZIER APPRENTICE: Dr. Staley, assisted in retraction, dissection and closure. ANESTHESIA: General. ESTIMATED BLOOD LOSS: Minimal. COMPLICATIONS: None. INDICATIONS: The patient is an 87-year-old female with right upper quadrant abdominal pain and gallbladder ultrasound demonstrating some gallstones. She understands risks and benefits of procedure and wished to proceed with procedure. Consent was signed on the chart. DESCRIPTION OF PROCEDURE: The patient was taken to the operating suite, she was prepped and draped in sterile fashion. Surgical pause was performed. An incision was made just above the umbilicus and dissection was taken down to the fascia, which was scored and grasped with Kochers and elevated. The abdomen was then entered. A 0 Vicryl suture was placed in a [id number] fashion for closure at the end. A balloon trocar was inserted into the abdomen and pneumoperitoneum was achieved. Under direct visualization of the laparoscope, a 5 mm trocar was then placed in the subxiphoid region and two 5 mm trocars were placed in the right upper quadrant. Gallbladder was dilated. It was grasped, elevated. The cystic duct and cystic artery were then dissected around and clips were placed on the proximal and distal portion of the cystic artery and a clip was placed on the distal portion of the cystic duct. The cystic duct was then partially transected and arrow catheter was inserted into the duct and cholangiogram was then performed. There were no filling defects. Contrast made its way into the duodenum without difficulty. The common bile duct did appear slightly dilated. The catheter was then removed. Clips were placed on the proximal portion of the cystic duct and the duct and artery were then transected. Hook cautery used to dissect the gallbladder from the gallbladder fossa achieving hemostasis. It was placed in an Endobag and then removed through the 12 mm trocar site. Copious amounts of irrigation and the abdomen was then irrigated and suctioned. Hemostasis had been achieved. The abdomen was then desufflated, the trocars were removed. The 12 mm fascial defect was then closed with the previously placed 0 Vicryl. The skin was then closed using 4-0 Monocryl in a subcuticular fashion. The area was washed and dried and Skin Affix was placed over the incisions. The patient tolerated procedure well without any complications. She was taken to recovery room in stable condition. Job ID: [id number] DocumentID: [id number] Dictated Date: 11/24/2017 12:40:41 Administrative Fellow Date: 11/24/2017 19:51:22 Dictated By: ROSALES COLEY DO
== END 2017-11-24 16:10 | disposition home or self-care (01) ==
LOC: SDC 08:08
PROVIDERS: ATTEND Surgery
DX: K80.10 Calculus of gallbladder with chronic cholecystitis without obstruction (principal); I10 Essential (primary) hypertension; E11.43 Type 2 diabetes mellitus with diabetic autonomic (poly)neuropathy; Z79.82 Long term (current) use of aspirin; Z79.84 Long term (current) use of oral hypoglycemic drugs
CPT/HCPCS: 36415; 85025; 87081

== ENCOUNTER 2018-08-30 13:19 | Outpatient (CLI) | payer MEDICARE ==
[~2018-08-30] VITALS: Ht 162.6 cm; Wt 73.5 kg
[~2018-08-30 13:19] MED LIST changes: +ACHD5005 PO; +DOCU-143 PO; +METF-397 PO; -METF500T5 PO
[2018-08-30] MEDS ORDERED: HYDR-3923 PO (13:32)
[2018-08-30 13:33] VITALS: BP 173/70
[2018-08-31] MEDS ORDERED: DOCU-143 PO (11:15)
[2018-08-31] MEDS ORDERED: ACHD5005 PO (11:15)
== END 2018-08-30 13:55 | disposition home or self-care (01) ==
LOC: PREOP 13:19
PROVIDERS: ATTEND Surgery
DX: Z01.818 Encounter for other preprocedural examination (principal)
CPT/HCPCS: 87081

== ENCOUNTER 2018-08-31 08:28 | Day surgery (SDC) | payer MEDICARE ==
[~2018-08-31] VITALS: Ht 162.6 cm; Wt 73.5 kg
[~2018-08-31 08:28] MED LIST changes: +HYDR-3923 PO
[2018-08-31 08:30] VITALS: BP 199/78
[2018-08-31] MEDS ORDERED: ceFAZolin 2 GM IV Premixed 50 ML IV ONE (08:45)
[2018-08-31] MEDS ORDERED: LIDOCAINE PF 2% 5 ML (XYLOCAINE) VIAL ONE (08:47)
[2018-08-31] MEDS ORDERED: SEVOFLURANE (ULTANE) 15 ML INHAL SOLN ONE ×2 (08:47→11:17)
[2018-08-31] MEDS ORDERED: fentaNYL INJECTION 100 MCG/2 ML AMP ONE (08:47)
[2018-08-31] MEDS ORDERED: ROCURONIUM 10 MG/ML 5 ML SYRINGE IV ONE (08:47)
[2018-08-31] MEDS ORDERED: proPOfol 200 MG/20 ML (DIPRIVAN) VIAL IV ONE (08:47)
[2018-08-31] MEDS ORDERED: ONDANSETRON 4 MG/2 ML (SDV) Z0FRAN ONE (08:47)
[2018-08-31] MEDS: LACTATED RINGERS 1,000 ML IV PRN ×2 (08:50→11:26)
[2018-08-31] MEDS ORDERED: LIDOCAINE 1% INJ 20 ML 20 ML VIAL ONE (08:54)
[2018-08-31] MEDS ORDERED: BUP/EPI 0.5% 1:200,000 (SENSORCAINE) 30 ML VIAL ONE (08:54)
[2018-08-31] MEDS ORDERED: ONDANSETRON 4 MG/2 ML (SDV) Z0FRAN IVP PRN ×2 (09:45→11:45)
--- OUTSIDE RECORDS SUMMARY | 2018-08-31 10:15 | XMS REPORT | Continuity of Care Document ---
Author Organization Unknown Address Unknown Allergies Active Description Code Type Severity Reaction Onset Reported/Identified Relationship to Patient Clinical Status Yes NORVASC MODERATE OTHER Yes amlodipine [id number] Drug Allergy Unknown SWELLING 11/23/2017 Medications Medication [...] TAB 400 MG (MAG-OX) MG 02/04/2017 02/10/2017 BID&0800,2000 METFORMIN TAB 500 MG (GLUCOPHAGE) Dose(s) 02/04/2017 02/10/2017 BID&0800,2000 HYDRALAZINE TAB 25 MG (APRESOLINE) Dose(s) 02/04/2017 02/10/2017 BID&0800,2000 IRBESARTAN TAB 150 MG (AVAPRO) MG 02/04/2017 [...] INTERNAL OPERATION (SURGICAL) WOUND 01/26/2017 Sara Mac W V26.51 TUBAL LIGATION STATUS 01/26/2017 Sara Mac W Z98.51 TUBAL LIGATION STATUS 01/26/2017 Sara Mac W Z98.89 OTHER SPECIFIED POSTPROCEDURAL STATES 01/26/2017 Sara Mac 285 OTHER AND UNSPECIFIED ANEMIAS 01/26/2017 Sara Mac W 998.31 DISRUPTION OF INTERNAL OPERATION (SURGICAL) WOUND 01/26/2017 Sara Mac D64.9 ANEMIA, UNSPECIFIED 01/26/2017 Glo Maca W V26.51 TUBAL LIGATION STATUS 01/26/2017 Glo Maca W Z98.51 TUBAL LIGATION STATUS 01/26/2017 Sara Mac W Z98.89 OTHER SPECIFIED POSTPROCEDURAL STATES 01/27/2017 Sara Mac A 285 OTHER AND UNSPECIFIED ANEMIAS 01/27/2017 Sara Mac W 998.31 DISRUPTION OF INTERNAL OPERATION (SURGICAL) WOUND 01/27/2017 Sara Mac D64.9 ANEMIA, UNSPECIFIED 01/27/2017 Danilo, Sara W [...] SITE 02/07/2017 Danilo, Sara W 250.00 02/07/2017 [facility], Sara W 272.4 02/07/2017 Danilo, Sara W 285.1 02/07/2017 Danilo, Sara W 401.0 02/07/2017 [facility], Sara W 530.81 02/07/2017 [facility], Sara A 531.0 02/07/2017 [facility], Sara W 535.10 02/07/2017 Danilo, Sara W 599.0 URINARY TRACT INFECTION, SITE NOT SPECIFIED 02/07/2017 Danilo, Sara W 780.79 OTHER MALAISE AND FATIGUE 02/07/2017 [facility], Sara W 787.91 DIARRHEA 02/07/2017 Danilo, Sara W B96.1 KLEBSIELLA PNEUMONIAE THE CAUSE OF DISEASES CLASSD ELSWHR 02/07/2017 Danilo, Sara W D62 ACUTE POSTHEMORRHAGIC ANEMIA 02/07/2017 Danilo, Sara W E11.9 TYPE 2 DIABETES MELLITUS WITHOUT [...] 531.0 02/15/2017 Danilo Sara W 552.3 02/15/2017 Glo Maca W 562.12 DIVERTICULOSIS OF COLON WITH HEMORRHAGE 02/15/2017 Danilo Sara W 578.9 HEMORRHAGE OF GASTROINTESTINAL TRACT, UNSPECIFIED 02/15/2017 Sara Mac W D62 ACUTE POSTHEMORRHAGIC ANEMIA 02/15/2017 Saar Mac I10 ESSENTIAL (PRIMARY) HYPERTENSION 02/15/2017 Sara Mac A K25.0 ACUTE GASTRIC ULCER WITH HEMORRHAGE 02/15/2017 Sara Mac K44.9 DIAPHRAGMATIC HERNIA WITHOUT OBSTRUCTION OR GANGRENE 02/15/2017 Sara Mac K57.30 DVRTCLOS OF LG INT W/O PERFORATION OR ABSCESS W/O BLEEDING 02/15/2017 Glo Maca W K92.2 GASTROINTESTINAL HEMORRHAGE, UNSPECIFIED 02/20/2017 Danilo Sara W 285 OTHER AND UNSPECIFIED ANEMIAS 02/20/2017 Glo Maca W D64.9 ANEMIA, UNSPECIFIED 02/20/2017 Danilo, Sara W 285 OTHER AND UNSPECIFIED ANEMIAS 02/20/2017 Glo Maca W D64.9 ANEMIA, UNSPECIFIED 03/06/2017 Sara Mac W V67.59 OTHER FOLLOW-UP EXAMINATION 03/06/2017 Sara Mac Z09 ENCOUNTER FOR FOLLOW-UP EXAMINATION AFTER COMPLETED TREATMENT FOR CONDITIONS OTHER THAN MALIGNANT NEOPLASM 03/06/2017 Sara Mac V67.59 OTHER FOLLOW-UP EXAMINATION 03/06/2017 Sara Mac Z09 ENCOUNTER FOR FOLLOW-UP EXAMINATION AFTER COMPLETED TREATMENT FOR CONDITIONS OTHER THAN MALIGNANT NEOPLASM 03/24/2017 Glo Maca W 531.0 ACUTE GASTRIC ULCER WITH HEMORRHAGE 03/24/2017 Danilo Sara W K25.0 ACUTE GASTRIC ULCER WITH HEMORRHAGE 03/24/2017 Sara Mac W V67.59 OTHER FOLLOW-UP EXAMINATION 03/24/2017 Sara Mac W Z09 ENCOUNTER FOR FOLLOW-UP EXAMINATION AFTER COMPLETED TREATMENT FOR CONDITIONS OTHER THAN MALIGNANT NEOPLASM 03/24/2017 Danilo Sara W 531.0 ACUTE GASTRIC ULCER WITH HEMORRHAGE 03/24/2017 Glo Maca W K25.0 ACUTE GASTRIC ULCER WITH HEMORRHAGE 03/24/2017 Sara Mac W V67.59 OTHER FOLLOW-UP EXAMINATION 03/24/2017 Sara Mac W Z09 ENCOUNTER FOR FOLLOW-UP EXAMINATION AFTER COMPLETED TREATMENT FOR CONDITIONS OTHER THAN MALIGNANT NEOPLASM 08/23/2017 DaniloGloa W 250.00 DIABETES MELLITUS WITHOUT MENTION OF COMPLICATION, TYPE II OR UNSPECIFIED TYPE, NOT STATED UNCONTROLLED 08/23/2017 Sara Mac W 796.4 OTHER ABNORMAL CLINICAL FINDINGS 08/23/2017 Sara Mac W E11.9 TYPE 2 DIABETES MELLITUS WITHOUT COMPLICATIONS 08/23/2017 Danilo Sara W 250.00 DIABETES MELLITUS WITHOUT MENTION [...] JOINT INVOLVING PELVIC REGION AND THIGH 11/06/2017 Danilo Sara W M25.559 PAIN IN UNSPECIFIED HIP 11/06/2017 Danilo, Sara W 719.45 PAIN IN JOINT INVOLVING PELVIC REGION AND THIGH 11/06/2017 Sara Mac W 790.6 OTHER ABNORMAL BLOOD CHEMISTRY 11/06/2017 Sara Mac W M25.559 PAIN IN UNSPECIFIED HIP 11/06/2017 Sara Mac W R73.9 HYPERGLYCEMIA, UNSPECIFIED 11/06/2017 Glo Maca W 719.45 PAIN IN JOINT INVOLVING PELVIC REGION AND THIGH 11/06/2017 Sara Mac 790.6 OTHER ABNORMAL BLOOD CHEMISTRY 11/06/2017 Sara Mac M25.559 PAIN IN UNSPECIFIED HIP 11/06/2017 Sara Mac R73.9 HYPERGLYCEMIA, UNSPECIFIED 11/20/2017 Joshua Roberson 784.0 [...] MD Ot 789.00 ABDOMINAL PAIN, UNSPECIFIED SITE 11/24/2017 SARA AMC MD Ot 789.00 ABDOMINAL PAIN, UNSPECIFIED SITE 11/24/2017 ROSALES ZABALA DO Ot E11.43 TYPE 2 DIABETES W DIABETIC AUTONOMIC (PO 11/24/2017 ROSALES ZABALA DO Ot I10 ESSENTIAL (PRIMARY) HYPERTENSION 11/24/2017 ROSALES ZABALA DO Ot K80.10 CALCULUS OF GALLBLADDER W CHRONIC CHOLEC 11/24/2017 ROSALES ZABALA DO Ot Z79.82 PHARMACEUTICAL ENGINEER (CURRENT) USE OF ASPIRIN 11/24/2017 ROSALES ZABALA DO Ot Z79.84 PHARMACEUTICAL ENGINEER (CURRENT) USE OF ORAL HYPOGLYC 11/27/2017 ROSALES ZABALA DO Ot K80.20 CALCULUS OF GALLBLADDER W/O CHOLECYSTITI 11/27/2017 ROSALES ZABALA DO Ot Z01.818 ENCOUNTER FOR OTHER PREPROCEDURAL EXAMIN 08/31/2018 ROSALES ZABALA DO Ot Z01.818 ENCOUNTER FOR OTHER PREPROCEDURAL EXAMIN Procedures There is no data. Results Test [...] Urine-pH 5.5 5-8.5 Urine-Protein 1+ Negative Urine-Specific [place] 1.010 1.000-1.030 Urine-WBC 10-20/HPF Urobilinogen 0.2 E.U./dL 0.2-1.0 Urine Culture - 01/23/17 13:54 PRELIM CULTURE RESULTS No Growth 24 hours FINAL CULTURE RESULTS <10,000 Gram Positive Mixed [id number] Skin Contaminant [id number] Further Workup done MEDIA PLATED Setup at [...] 30.7 g/dL 32.0-36.0 MCV 79.6 fL 80.0-97.0 Lynn% 6.5 % 0.0-12.0 MPV 9.6 fL 7.4-10.0 Berenice% 57.4 % 37.0-80.0 Plt 272 K/uL 150-400 RBC 3.48 M/uL 3.60-5.00 RDW 15.4 % 11.6-14.8 WBC 7.66 K/uL 5.00-10.00 Berenice 4.40 K/uL 2.00-6.90 Lynn 0.5 K/uL 0.0-0.9 Baso 0.0 K/uL 0.0-0.2 Magnesium - 01/26/17 15:13 Mg++ 2.4 mg/dL 1.6-2.6 TYPE/SCREEN - 01/26/17 16:42 ABO/RH B NEGATIVE ANTIBODY SCREEN NEGATIVE Leukoreduced Packed RBC Unit Checkout - 01/26/17 19:14 LRPRBC Checkout Checked Out. Leukoreduced Packed RBC Unit Checkout - 01/26/17 23:57 LRPRBC Checkout Checked Out. - 01/27/17 04:42 Hct 31.0 % 36.0-46.0 Hgb 10.0 g/dL 13.0-15.0 [facility] - 01/30/17 10:05 Anion Gap 12 6-14 [...] 5-8.5 Urine-Protein Negative Negative Urine-RBC 2-5/HPF Urine-Specific [place] 1.020 1.000-1.030 Urine-WBC 20-40/HPF Urobilinogen 0.2 0.2-1.0 Urine Culture - 02/04/17 00:50 PRELIM CULTURE RESULTS 50,000-100,000 Gram Negative RITA / ID to Follow MEDIA PLATED Setup at 05:30 on 02/04/2017 CULTURE SOURCE [id number]\ Sensi - 02/04/17 00:50 FINAL CULTURE RESULTS [...] RESULTS Citrobacter farmeri (Isolate 2) XM (2) [facility] - 02/04/17 06:28 CROSSMATCH COMPATIBLE X 2 Hct 22.9 % 36.0-46.0 Hgb 7.3 g/dL 13.0-15.0 Leukoreduced Packed RBC Unit Checkout - 02/04/17 08:00 LRPRBC Checkout Checked Out. Leukoreduced Packed RBC Unit Checkout - 02/04/17 10:55 LRPRBC Checkout Checked Out. - 02/04/17 14:53 Hct 29.7 % 36.0-46.0 Hgb 9.5 g/dL 13.0-15.0 [facility] - 02/05/17 06:40 Anion Gap 13 6-14 [...] 32.1 g/dL 32.0-36.0 MCV 81.1 fL 80.0-97.0 Lynn% 10.1 % 0.0-12.0 MPV 9.4 fL 7.4-10.0 Berenice% 58.6 % 37.0-80.0 Plt 176 K/uL 150-400 RBC 3.65 M/uL 3.60-5.00 RDW 16.0 % 11.6-14.8 WBC 7.04 K/uL 5.00-10.00 Berenice 4.12 K/uL 2.00-6.90 Lynn 0.7 K/uL 0.0-0.9 Baso 0.0 K/uL 0.0-0.2 CBC with Auto Diff - 02/06/17 07:22 Baso% 0.40 % 0.00-2.50 Eos 0.2 K/uL 0.0-0.7 Eos% 3.3 % 0.0-7.0 Hct 31.9 % 36.0-46.0 Hgb 10.1 g/dL 13.0-15.0 Lym 1.84 K/uL 0.60-3.40 Lym% 35.9 % 10.0-50.0 MCH 25.9 pg 27.0-31.0 MCHC 31.7 g/dL 32.0-36.0 MCV 81.8 fL 80.0-97.0 Lynn% 8.2 % 0.0-12.0 MPV 9.5 fL 7.4-10.0 Berenice% 52.2 % 37.0-80.0 Plt 203 K/uL 150-400 RBC 3.90 M/uL 3.60-5.00 RDW 15.8 % 11.6-14.8 WBC 5.12 K/uL 5.00-10.00 Berenice 2.67 K/uL 2.00-6.90 Lynn 0.4 K/uL 0.0-0.9 Baso 0.0 K/uL 0.0-0.2 CBC with Auto Diff - 02/06/17 19:05 Baso% 0.30 % 0.00-2.50 Eos 0.2 K/uL 0.0-0.7 Eos% 3.2 % 0.0-7.0 Hct 30.7 % 36.0-46.0 Hgb 9.9 Result Verified by Repeat Analysis g/dL 13.0- 15.0 Lym 1.92 K/uL 0.60-3.40 Lym% 27.9 % 10.0-50.0 MCH 26.2 pg 27.0-31.0 MCHC 32.2 g/dL 32.0-36.0 MCV 81.2 fL 80.0-97.0 Lynn% 6.8 % 0.0-12.0 MPV 9.6 fL 7.4-10.0 Berenice% 61.8 % 37.0-80.0 Plt 213 K/uL 150-400 RBC 3.78 M/uL 3.60-5.00 RDW 16.1 % 11.6-14.8 WBC 6.89 K/uL 5.00-10.00 Berenice 4.26 K/uL 2.00-6.90 Lynn 0.5 K/uL 0.0-0.9 Baso 0.0 K/uL 0.0-0.2 iStat BNP - 02/07/17 06:56 i-STAT BNP 233.00 pg/mL 0.00-50.00 IFOBT Occult Blood - 02/07/17 11:44 IFOBT Occult Blood POSITIVE Negative C.difficile, DNA Amplification - 02/07/17 11:45 C.difficile, DNA Amplification NEGATIVE: No DNA evidence of toxogenic C. difficile detected. Negative HH - 02/07/17 14:25 Hct 30.7 % 36.0-46.0 Hgb 9.8 g/dL 13.0-15.0 CBC with Auto Diff - 02/10/17 07:34 Baso% 0.40 % 0.00-2.50 Eos 0.2 K/uL 0.0-0.7 Eos% 2.6 % 0.0-7.0 Hct 29.4 % 36.0-46.0 Hgb 9.4 g/dL 13.0-15.0 Lym 3.47 K/uL 0.60-3.40 Lym% 43.3 % 10.0-50.0 MCH 26.2 pg 27.0-31.0 MCHC 32.0 g/dL 32.0-36.0 MCV 81.9 fL 80.0-97.0 Lynn% 7.4 % 0.0-12.0 MPV 8.8 fL 7.4-10.0 Berenice% 46.3 % 37.0-80.0 Plt 294 K/uL 150-400 RBC 3.59 M/uL 3.60-5.00 RDW 16.2 % 11.6-14.8 WBC 8.01 K/uL 5.00-10.00 Berenice 3.71 K/uL 2.00-6.90 Lynn 0.6 K/uL 0.0-0.9 Baso 0.0 K/uL 0.0-0.2 [...] - 02/11/17 23:10 LRPRBC Checkout Checked Out. HH - 02/12/17 04:25 Hct 28.0 % 36.0-46.0 [...] 32.9 g/dL 32.0-36.0 MCV 80.6 fL 80.0-97.0 Lynn% 8.5 % 0.0-12.0 MPV 9.4 fL 7.4-10.0 Berenice% 44.8 % 37.0-80.0 Plt 249 K/uL 150-400 RBC 3.66 M/uL 3.60-5.00 RDW 16.1 % 11.6-14.8 WBC 5.97 K/uL 5.00-10.00 Berenice 2.67 K/uL 2.00-6.90 Lynn 0.5 K/uL 0.0-0.9 Baso 0.0 K/uL 0.0-0.2 [facility] - 02/12/17 06:06 Anion Gap 14 6-14 [...] 5-8.5 Urine-Protein Negative Negative Urine-RBC Negative Urine-Specific [place] 1.015 1.000-1.030 Urine-WBC Rare/HPF Urobilinogen 0.2 E.U./dL 0.2-1.0 XM (2) [facility] - 02/12/17 16:44 CROSSMATCH COMPATIBLE X 2 Hct 33.4 % 36.0-46.0 Hgb 11.0 g/dL 13.0-15.0 [facility] - 02/13/17 07:00 Anion Gap 14 6-14 [...] 31.8 g/dL 32.0-36.0 MCV 83.0 fL 80.0-97.0 Lynn% 7.9 % 0.0-12.0 MPV 9.6 fL 7.4-10.0 Berenice% 57.6 % 37.0-80.0 Plt 300 K/uL 150-400 RBC 3.64 M/uL 3.60-5.00 RDW 16.1 % 11.6-14.8 WBC 6.21 K/uL 5.00-10.00 Berenice 3.58 K/uL 2.00-6.90 Lynn 0.5 K/uL 0.0-0.9 Baso 0.1 K/uL 0.0-0.2 Hemoglobin - 02/20/17 07:25 Hgb 9.7 g/dL 13.0-15.0 - 03/06/17 09:37 Hct 32.3 % 36.0-46.0 Hgb 10.1 g/dL 13.0-15.0 HH - 03/24/17 07:39 Hct 32.1 % 36.0-46.0 Hgb 9.9 g/dL 13.0-15.0 Lab Card - 08/23/17 07:38 LabCard Specimen submitted to [facility] for Testing. CBC with Auto Diff - 11/02/17 11:47 Baso% 0.20 % 0.00-2.50 Eos 0.1 K/uL 0.0-0.7 Eos% 1.2 % 0.0-7.0 Hct 37.8 % 36.0-46.0 Hgb 13.2 g/dL 13.0-15.0 Lym 2.03 K/uL 0.60-3.40 Lym% 19.2 % 10.0-50.0 MCH 29.7 pg 27.0-31.0 MCHC 34.9 g/dL 32.0-36.0 MCV 84.9 fL 80.0-97.0 Lynn% 6.1 % 0.0-12.0 MPV 9.6 fL 7.4-10.0 Berenice% 73.3 % 37.0-80.0 Plt 248 K/uL 150-400 RBC 4.45 M/uL 3.60-5.00 RDW 14.4 % 11.6-14.8 WBC 10.60 K/uL 5.00-10.00 Berenice 7.77 K/uL 2.00-6.90 Lynn 0.7 K/uL 0.0-0.9 Baso 0.0 K/uL 0.0-0.2 [...] 1.0 mg/dL 0.2-1.2 TP 6.9 g/dL 6.0-8.3 Methicillin resistant Staphylococcus aureus (MRSA) screening culture - 08:45 Methicillin resistant Staphylococcus aureus (MRSA) screening culture NEG [facility] Complete blood count (CBC) with automated white blood cell (WBC) differential - 11/24/17 09:10 Blood leukocytes automated count (number/volume) 7.9 10*3/uL 4.3-11.0 Blood erythrocytes automated count (number/volume) 4.21 10*6/uL 4.35-5.85 Venous blood hemoglobin measurement (mass/volume) 12.3 g/dL 11.5-16.0 Blood hematocrit (volume fraction) 35 % 35-52 Automated erythrocyte mean corpuscular volume 84 [foz_us] 80-99 Automated erythrocyte mean corpuscular hemoglobin (mass per erythrocyte) 29 pg 25-34 Automated erythrocyte mean corpuscular hemoglobin concentration measurement ( mass/volume) 35 g/dL 32-36 Automated erythrocyte distribution width ratio 13.8 % 10.0-14.5 Automated blood platelet count (count/volume) 264 10*3/uL 130-400 Automated blood platelet mean volume measurement 9.1 [foz_us] 7.4-10.4 Automated blood neutrophils/100 leukocytes 71 % 42-75 Automated blood lymphocytes/100 leukocytes 21 % 12-44 Blood monocytes/100 leukocytes 6 % 0-12 Automated blood eosinophils/100 leukocytes 2 % 0-10 Automated blood basophils/100 leukocytes 0 % 0-10 Blood neutrophils automated count (number/volume) 5.6 10*3 1.8-7.8 Blood lymphocytes automated count (number/volume) 1.7 10*3 1.0-4.0 Blood monocytes automated count (number/volume) 0.5 10*3 0.0-1.0 Automated eosinophil count 0.1 10*3/uL 0.0-0.3 Automated blood basophil count (count/volume) 0.0 10*3/uL 0.0-0.1 Hemoglobin - 02/21/18 07:15 Hgb 13.8 g/dL 13.0-15.0 Hemoglobin A1C - 08/17/18 07:19 % A1C 7.20 % 5.40-6.60 AvGlu 179 mg/dL 70-110 Capillary blood glucose measurement by glucometer (mass/volume) - 08/31/18 08: 37 Capillary blood glucose measurement by glucometer (mass/volume) 164 mg/dL 70-110 Encounters ACCT No. Visit Date/Time Discharge Status Pt. Type Provider Facility Loc./Unit Complaint [id number] 08/17/2018 07:07:00 08/17/2018 23:59:00 DIS Outpatient Sara Mac [id number] 02/21/2018 07:07:00 02/21/2018 23:59:00 DIS Outpatient Sara Mac [id number] 11/20/2017 14:17:00 11/20/2017 17:15:00 DIS Outpatient [facility] ER [id number] 11/09/2017 08:55:00 11/09/2017 23:59:00 DIS Outpatient Sara Mac [id number] 11/08/2017 07:46:00 11/08/2017 23:59:00 DIS [facility] Sara Mac [id number] 11/06/2017 06:32:00 11/06/2017 23:59:00 DIS Outpatient Sara Mac [id number] 11/02/2017 11:43:00 11/02/2017 23:59:00 DIS Outpatient Sara Mac [id number] 08/23/2017 07:22:00 08/23/2017 23:59:00 DIS [facility] Sara Mac [id number] 03/24/2017 07:37:00 03/24/2017 23:59:00 DIS [facility] Sara Mac [id number] 03/06/2017 09:29:00 03/06/2017 23:59:00 DIS [facility] Sara Mac [id number] 02/20/2017 07:17:00 02/20/2017 23:59:00 DIS Outpatient Sara Mac [id number] 02/11/2017 17:11:00 02/15/2017 10:41:00 DIS Outpatient Danilo [facility] [id number] 02/10/2017 07:31:00 02/10/2017 23:59:00 DIS Outpatient Sara Mac [id number] 02/03/2017 21:55:00 02/07/2017 16:40:00 DIS Outpatient Danilo [facility] [id number] 01/30/2017 10:02:00 01/30/2017 23:59:00 DIS Outpatient Sara Mac [id number] 01/26/2017 16:30:00 01/27/2017 09:30:00 DIS Outpatient Sara Mac [id number] 01/26/2017 09:57:00 01/26/2017 23:59:00 DIS Outpatient Sara Mac [id number] 01/26/2017 16:06:00 01/26/2017 16:06:00 CAN Outpatient Sara Mac [id number] 01/23/2017 13:42:00 01/23/2017 18:10:00 DIS Outpatient Da [facility] ER [id number] 01/19/2017 07:01:00 01/19/2017 23:59:00 DIS Outpatient Sara Mac [id number] 01/18/2017 14:12:00 01/18/2017 23:59:00 DIS Outpatient Sara Mac [id number] 08/12/2016 08:41:00 08/12/2016 23:59:00 DIS Outpatient Sara Mac [id number] 01/26/2017 21:26:42 Document Registration [id number] 08/30/2018 13:19:00 08/30/2018 13:55:00 DIS Outpatient ROSALES ZABALA DO [facility] PREOP INCISIONAL HERNIA [id number] 11/24/2017 08:08:00 11/24/2017 16:10:00 DIS Outpatient ROSALES ZABALA DO [facility] CHOLELITHIASIS [id number] 11/23/2017 06:14:00 11/23/2017 14:05:00 DIS Outpatient ROSALES ZABALA DO [facility] PREOP CHOLELITHIASIS [id number] 09/17/2012 09:38:00 09/17/2012 23:59:59 CLS Outpatient SARA MAC MD [facility] RAD ABD PAIN [id number] 08/31/2018 08:28:00 ACT Outpatient ROSALES ZABALA DO [facility] SDC INCISIONAL HERNIA
--- NOTE | 2018-08-31 10:20 | Progress Note-Pre Operative ---
Pre-Operative Progress Note H&P Reviewed The H&P was reviewed, patient examined and no changes noted. Date Seen by Provider: Aug 31, 2018 Time Seen by Provider: 10: Date H&P Reviewed: Aug 31, 2018 Time H&P Reviewed: 10:20 Pre-Operative Diagnosis: incisional hernia ROSALES ZABALA DO Aug 31, 2018 10:20
[2018-08-31] MEDS ORDERED: GLYCOPYRROLATE 0.2 MG/ML (ROBINUL) 2 ML VIAL ONE ×2 (11:04→11:17)
--- NOTE | 2018-08-31 11:13 | Progress Note-Post Operative ---
Post-Operative Progess Note Surgeon (s)/Document Manager (s) Surgeon ROSALES ZABALA DO Document Manager: Dr. Staley Pre-Operative Diagnosis incisional hernia Post-Operative Diagnosis umbilical, incisional incarcerated herina Procedure & Operative Findings Date of Procedure 08/31/18 Procedure Performed/Findings lap incisional hernia repair. Anesthesia Type gen Estimated Blood Loss Estimated blood loss (mL): min Specimens/Packing Specimens Removed hernia contents ROSALES ZABALA DO Aug 31, 2018 11:13
[2018-08-31] MEDS ORDERED: DOCU-143 PO (11:15)
[2018-08-31] MEDS ORDERED: HYDROcodone/APAP 5 MG/325 MG (LORTAB) TAB PO PRN (11:15)
[2018-08-31] MEDS ORDERED: ACHD5005 PO (11:15)
--- NOTE | 2018-08-31 11:16 | Discharge Inst-Simple/Standard ---
Discharge Inst-Standard Discharge Medications New, Converted or Re-Newed RX: RX on Chart Patient Instructions/Follow Up Plan of Care/Instructions/FU: 2 weeks Coley Activity as Tolerated: No Discharge Diet: Regular Diet Other Inst to Patient Follow up Appt: Make appointment for 2 week. Instructions: No lifting greater than 10 pounds. No strenuous activity. May shower in 24 hours, no tub bath or soaking. Use incentive spirometer at home as directed. No Smoking Skin/Wound Care: You have special glue over incisions it will fall off on its own. Symptoms to Report: Appetite Changes, Extremity Discoloration, Numbness/Tingling, Swelling Increased , Bleeding Excessive, Eyesight Changes, Pain Increased, Urine Color Change, Constipation(Persistent), Fever over 101 degree F, Pain/Pressure in chest, Urinating Difficulty, Cough Up/Vomit Blood, Heart Beat Irreg/Pounding, Pain/ Pressure in jaw, Vaginal Bleeding Increase, Cramps in feet or legs, Lightheadedness, Pain/Pressure in shoulder, Diarrhea(Persistent), Memory Changes Suddenly, Questions/Concerns, Weight gain consecutive days, Dizziness/ Fainting, Nausea/Vomiting, Shortness of Breath, Weight gain over 2 pounds If questions or concerns contact your physician Or seek help at emergency department. ROSALES COLEY DO Aug 31, 2018 11:16
[2018-08-31] MEDS ORDERED: NEOSTIGMINE 1 MG/ML 5 ML SYRINGE ONE (11:17)
[2018-08-31] MEDS ORDERED: LABETALOL HCL 20 MG/4 ML VIAL ONE (11:18)
[2018-08-31] MEDS ORDERED: morphine INJ 10 MG/ML 1ML (SYR OR VIAL) IVP ONE (11:45)
[2018-08-31] MEDS ORDERED: HYDROmorphone 2 MG/ML VIAL (DILAUDID) IV ONE (11:45)
--- NOTE | 2018-08-31 12:11 | Anesthesia-General Post-Op ---
General Patient Condition Mental Status/LOC: Same as Preop Cardiovascular: Satisfactory Nausea/Vomiting: Absent Respiratory: Satisfactory Pain: Controlled Complications: Absent Post Op Complications Complications None Follow Up Care/Instructions Patient Instructions None needed. Anesthesia/Patient Condition Patient Condition Patient is doing well, no complaints, stable vital signs, no apparent adverse anesthesia problems. No complications reported per nursing. ROB MONTANEZ CRNA Aug 31, 2018 12:11
[2018-08-31 12:25] VITALS: BP 189/74
[2018-08-31 12:55] VITALS: BP 193/76
[2018-08-31 13:25] VITALS: BP 195/80
[2018-08-31 13:45] VITALS: BP 195/80
--- NOTE | 2018-09-01 01:06 | OPERATIVE REPORT ---
DATE OF SERVICE: 08/31/2018 PREOPERATIVE DIAGNOSIS: Incisional hernia. POSTOPERATIVE DIAGNOSIS: Umbilical and incisional hernia and ventral hernia incarcerated fat. PROCEDURE: Laparoscopic incisional and incarcerated umbilical hernia repair. SURGEON: Raymond Coley DO SLIDE MAKER: Dr. Staley, assisted in retraction, dissection and closure. ANESTHESIA: General. ESTIMATED BLOOD LOSS: Minimal. COMPLICATIONS: None. INDICATIONS: The patient is an 88-year-old female with a hernia noted. She understands risks and benefits of procedure and wished to proceed with procedure. Consent was signed in the chart. PROCEDURE: The patient was taken to the operating suite. She was prepped and draped in sterile fashion. Surgical pause was performed. Local anesthetic was infiltrated in left upper quadrant. An 11 blade scalpel was used to make a skin incision. Cautery was used to dissect down to the fascia, which was then scored and divided. The muscles were then spread to the posterior fascia, was encountered and this was then divided. A balloon trocar was inserted through the abdominal wall and pneumoperitoneum was achieved. Under direct visualization of the laparoscope, a 5 mm trocar was placed in the right upper quadrant and a 5 mm trocar was placed in the left lower quadrant. Hernia was visualized. There is 3 actual defects, one at the umbilicus, one just above from the previous incision and a small with incarcerated fat through it. The falciform ligament thus began to be taken down with the LigaSure also removing the incarcerated fat from the most superior hernia defect. The incisional defect was larger, so this was closed using 0 Vicryl and a Joseph-Sophie. A 4 inch round Echo mesh was then inserted in the abdomen and grasped through the small stab incision with a Joseph-Sophie and balloon was inflated. A SecureStrap Tacker was then used to put a ring of tacks circumferentially. The balloon was removed and an inner crown was made as well. There was good overlap of the defects. Adequate coverage. Mesh was in good position. While this was being placed the abdominal pressure was decreased as well. The abdomen was then inspected. No other pathology noted. The abdomen was desufflated, the trocars were removed. The posterior and anterior fascial defects were closed at the 12 mm incision. The skin was then closed using 4-0 Monocryl in subcuticular fashion. The abdomen was then washed and dried and Skin Affix was placed over the incisions. The patient tolerated procedure well without any complications. She was taken to recovery room in stable condition. Job ID: [id number] DocumentID: [id number] Dictated Date: 08/31/2018 14:34:27 Chicken Vaccinator Date: 09/01/2018 01:04:50 Dictated By: DO LATANYA SAINZ
== END 2018-08-31 13:45 | disposition home or self-care (01) ==
LOC: SDC 08:28
PROVIDERS: ATTEND Surgery
DX: K43.2 Incisional hernia without obstruction or gangrene (principal); K42.0 Umbilical hernia with obstruction, without gangrene; E11.9 Type 2 diabetes mellitus without complications; I10 Essential (primary) hypertension; R06.00 Dyspnea, unspecified; Z79.82 Long term (current) use of aspirin; Z79.84 Long term (current) use of oral hypoglycemic drugs; Z79.899 Other long term (current) drug therapy
CPT/HCPCS: 82962; 88302; 94664

== ENCOUNTER → 2022-02-28 | Outpatient (CLI) | payer MEDICARE ==
--- NOTE | 2022-02-28 15:11 | Diagnostic Imaging Report ---
INDICATION: Pre-MRI screening. TIME OF EXAM: 2:57 p.m. FINDINGS: Heart size is normal. There are dual-lead left subclavian cardiac pacemaker noted with lead tips in the region of the right atrium and right ventricle. No abandoned leads are identified. Lungs are clear. There is no effusion or pneumothorax. IMPRESSION: No evidence of abandoned leads. Dictated by: Dictated on workstation # [id number]
--- NOTE | 2022-02-28 18:38 | Diagnostic Imaging Report ---
PROCEDURE: MR imaging cholangiography-pancreatography. TECHNIQUE: Multiplanar imaging of the abdomen was performed on a 1.5 Sherrie magnet without contrast. 3D reconstructions were made for the MRCP INDICATION: Epigastric pain. FINDINGS: Intrahepatic biliary radicles and common bile duct are mildly dilated. The common duct measures 13 mm. There is abrupt tapering in the distal common duct at the ampulla of Vater. No definite filling defects are seen. The pancreatic duct is slightly dilated throughout as well. The pancreas is atrophic. The gallbladder is absent. There are no liver lesions. Portal vein is widely patent. No periportal adenopathy. The adrenal glands are not enlarged. No evidence of renal obstruction. IMPRESSION: Dilated intrahepatic radicles and common duct as well as pancreatic duct. The abrupt tapering at the ampulla of Vater suggests stenotic changes. No definite filling defects are seen to suggest common duct stone. No evidence of irregular mass. Dictated by: Dictated on workstation # [id number]
== END ==
LOC: RAD 14:45
PROVIDERS: ATTEND Surgery
DX: R10.13 Epigastric pain (principal)
CPT/HCPCS: 71045; 74181